=== PATIENT | male | born 1975 | race African-American/Black ===

== ENCOUNTER 2017-07-06 10:24 | Emergency (ER) | payer BC ==
[2017-07-06] MEDS ORDERED: Ibuprofen 800 MG TAB ONE (11:51)
--- NOTE | 2017-07-06 13:04 | RAD ---
TWO VIEWS CHEST: 07/06/2017 PROVIDED CLINICAL HISTORY: Cough. FINDINGS: The cardiac and mediastinal silhouette are within normal limits. No focal consolidation, pleural fl uid, or pneumothorax apparent. IMPRESSION: No evidence for an acute cardiopulmonary process. POS: OFF
== END 2017-07-06 13:27 | disposition home or self-care (01) ==
LOC: ERS 10:24
DX: J02.9 Acute pharyngitis, unspecified (principal)
CPT/HCPCS: 71020

== ENCOUNTER 2017-07-21 08:16 | Emergency (ER) | payer BC ==
--- NOTE | 2017-07-21 08:48 | RAD ---
RIGHT ANKLE THREE VIEWS: History: Injured ankle. FINDINGS: Plate and screws transfix the distal fibula. No evidence of acute fracture. IMPRESSION: No acute fracture identified. POS: [facility]
[2017-07-21] MEDS ORDERED: Ketorolac Tromethamine 60 MG/2 ML VIAL ONE (09:59)
== END 2017-07-21 10:40 | disposition home or self-care (01) ==
LOC: ERS 08:16
DX: S93.401A Sprain of unspecified ligament of right ankle, initial encounter (principal); X58.XXXA Exposure to other specified factors, initial encounter; Y93.39 Activity, other involving climbing, rappelling and jumping off
CPT/HCPCS: 96372; J1885

== ENCOUNTER 2024-03-15 07:24 | Emergency (ER) | payer BC, OTHER ==
[2024-03-15] MEDS ORDERED: Lidocaine/Transparent Dressing 1 EACH KIT ONE (08:14)
[2024-03-15] MEDS ORDERED: HYDROcodone/Acetaminophen 5/325 mg Tablet ONE (09:12)
[2024-03-15 11:58] LABS: Body Fluid Source Synovial Fluid; Tube # ANKLE ASPIRATE
[2024-03-15 11:59] LABS: BF Color Red; Clarity Cloudy/Turbid (Clear)
[2024-03-15 12:15] LABS: BF Segmented Neutrophils 72 %; Cell Count Non Hematic 2 %; Eosinophils 2 %; Lymphocytes 24 %
== END 2024-03-15 13:38 | disposition home or self-care (01) ==
LOC: ERS 07:24
DX: M25.572 Pain in left ankle and joints of left foot (principal); Z55.6 Problems related to health literacy
CPT/HCPCS: 82945; 85060; 87070; 87205; 89051; 89060